=== PATIENT | female | born 1985 | race Caucasian/White ===

== ENCOUNTER 2025-03-19 14:01 | Emergency (ER) | payer OTHER, SELFPAY ==
[2025-03-19 14:31] LABS: Hematocrit 33.0 % (37.0-47.0); Hemoglobin 9.9 g/dL (12.0-16.0); Mean Corp Hgb Conc. 30.0 g/dL (33.0-37.0); Mean Corpuscular Volume 71.4 fL (81.0-99.0); Nucleated Red Blood Cells % 0 %; Platelet Count 377 10^3/uL (130-400); Red Cell Dist. Width 17.2 % (11.5-14.5)
[2025-03-19 14:40] LABS: HCG, Serum Qualitative Screen Negative
[2025-03-19 14:48] LABS: ALT (SGPT) 24 U/L (0-35); AST (SGOT) 23 U/L (14-36); Albumin 4.6 g/dl (3.5-5.0); Alkaline Phosphatase 68 U/L (38-126); Blood Urea Nitrogen 20 mg/dl (7-17); Calcium 9.4 mg/dl (8.4-10.2); Carbon Dioxide 25 mmol/L (22-30); Chloride 106 mmol/L (98-107); Glucose 93 mg/dl (70-99); Lipase 81 U/L (23-300); Potassium 4.6 mmol/L (3.5-5.1); Sodium 138 mmol/L (135-145); Total Protein 7.6 g/dl (6.3-8.2); eGFR > 60.00
[2025-03-19 15:56] LABS: Urine Character Clear (Clear)
--- NOTE | 2025-03-19 18:17 | ED.GENMED ---
History of Present Illness
General
Chief Complaint: Abdominal Symptoms
Source: patient
Exam Limitations: none
Time Seen by Provider: 03/19/25 18:00
History of Present Illness
History of Present Illness:
39yoF with a history of PCOS and hypothyroidism not on medications presenting for evaluation of flank pain. Symptoms began yesterday morning when she woke up. She reports a sharp pain in the R flank that resolved yesterday and recurred today.
Pain radiates to the suprapubic region. Her pain is associated with bloating, nausea, vomiting, and diarrhea. She also reports having the constant urge to urinate. She states it felt like she was dying today because the pain was so bad. Her pain
resolved while in the waiting room and she is currently asymptomatic. She had a similar episode in December. She denies any fevers. LMP was 1 week ago. No previous abdominal surgeries.
Phy Exam
General Physical Exam
General Presentation: well appearing and no apparent distress
General age: appears stated age
General Skin: warm and dry
General Habitus: normal
General Mental: alert
ENT Exam
ENT Exam: normocephalic
Cardiovascular Exam
Cardiovascular Exam: regular rate/rhythm and no murmur
Pulmonary Exam
Pulmonary Exam: lungs clear, no respiratory distress, no rales, no crackles, no rhonchi and no wheezing
Gastrointestinal Exam
Gastrointestinal Exam: non tender, soft, non distended and no cva tenderness
Neurological Exam
Neurological Exam: alert
[place] Coma Scale
Eye Opening: Spontaneous
Verbal Response: Oriented
Motor Response: Obeys Commands
GCS Total Score: 15
Skin Exam
Skin Exam: normal color and warm/dry
Psychiatric Exam
Psychiatric Exam: normal mood/affect
Course
Orders/Labs/Results
Orders:
Orders
03/19/25 14:12
Test Result ONCE
03/19/25 14:20
Complete Blood Count/With Diff Urgent
Comprehensive Metabolic Panel Urgent
HCG, Serum Qualitative Screen Urgent
Lipase Urgent
03/19/25 15:36
Urinalysis Reflex To Culture Urgent
Date Specimen was Collected: 03/19/25
Time Specimen was Collected: 14:12
Urine Microscopic Reflex Cult Urgent
Urine Culture Urgent
THANG Source: U
Specimen Description:
Date Specimen was Collected: 03/19/25
Time Specimen was Collected: 14:12
03/19/25 18:13
CT Abd/pel Without Iv Or Oral Urgent
Comment:
Reason For Exam: R flank pain
Abnormal Lab Results
03/19/25 03/19/25
14:20 15:36
Hgb 9.9 L g/dL
(12.0-16.0)
Hct 33.0 L %
(37.0-47.0)
MCV 71.4 L fL
(81.0-99.0)
MCH 21.4 L pg
(27.0-31.0)
MCHC 30.0 L g/dL
(33.0-37.0)
RDW 17.2 H %
(11.5-14.5)
BUN 20 H mg/dl
(7-17)
Ur Occult Blood Reflex 4+ A
(Negative)
Leukocyte Esterase Rfl 1+ A
(Negative)
Urine RBC 7-10 A /HPF
(0-2)
Urine Bacteria (Reflex) Moderate A
(Negative)
03/19/25 14:20
03/19/25 14:20
Vital Signs
Initial and Last Documented VS:
Initial Vital Signs
Temp Pulse Resp Pulse Ox
98.4 F 78 16 98
03/19/25 14:07 03/19/25 14:07 03/19/25 14:07 03/19/25 14:07
Last Documented Vital Signs
Temp Pulse Resp BP Pulse Ox
98.4 F 78 16 125/66 98
03/19/25 14:07 03/19/25 14:07 03/19/25 14:07 03/19/25 19:03 03/19/25 18:24
MDM/Problems Addressed
Differential Diagnosis Includes:
39yoF here with R flank pain x 1 day. Intermittent. Associated with n/v and urinary urgency. Resolved while in the waiting room. Asymptomatic on initial evaluation. VSS. She is well appearing in no distress. Abdominal exam is benign. Differential
diagnosis includes but is not limited to: kidney stone, pyelonephritis, biliary colic, gastroenteritis, doubt appendicitis
Initial ED plan: Workup initiated in triage. Labs reveal anemia with a hemoglobin of 9.9. Remainder of labs unremarkable including normal white count, renal function, LFTs, lipase. UA with 4+ blood. Moderate bacteria present on microscopic
analysis although 11-15/LPF squamous epithelial cells present suggesting contaminated sample. Will obtain CT abdomen without contrast.
*Pulse Oximetry
SaO2: 98
Oxygen Mode of Delivery: Room air
Patient hypoxic: no
*Critical Care Note
Total Time (30-74mins, 75-104mins- exclusive of procedures): Not Applicable
Update Note
Update Note:
CT shows a 4 mm stone near the right UVJ. It is difficult to tell whether this is in the UVJ or has passed into the bladder. Only minor hydro present. Patient remains asymptomatic on reassessment. She is stable for discharge. Supportive care
discussed including hydration and urine straining. She was advised to take Tylenol and ibuprofen for pain. Prescription given for Zofran. Advised follow-up with urology and ED return precautions reviewed.
ED Attending Note
-
Portions of this chart may have been created with voice recognition software.� Occasional wrong word or��sound alike� substitutions may have occurred due to the inherent limitations of voice recognition software.
Discharge Plan
Departure
Patient Disposition: Home (Routine Discharge)
Date of Disposition: 03/19/25
Time of Disposition: 20:39
Patient with high blood pressure during this ER visit?: No
Discharge Problem:
Calculus of distal right ureter
Instructions: Kidney stones in adults - ED (DC)
Prescriptions:
New
ondansetron 4 mg tablet,disintegrating
4 mg PO Q6H PRN (Reason: nausea and vomiting) Qty: 20 0RF
Referrals:
Christopher Sanchez MD [Active, Urology]
UNKNOWN - PT DOES,NOT KNOW [Family Provider]
Activity Restrictions/Additional Instructions:
Drink plenty of fluids. Strain your urine until stone has passed.
Take Tylenol and ibuprofen as needed for pain. Take Zofran as needed for nausea.
Please follow-up with urology. Return to the ER with any worsening symptoms including uncontrolled pain or fevers.
Interventions
Interventions:
*Risk Screen - Suicide Last Done: 03/19/25 14:07
*Neglect/Abuse Screening Last Done: 03/19/25 14:07
*Nursing Disposition Last Done: 03/19/25 21:01
DF-Fwljqo-Tniocutzpw Assessment Last Done: 03/19/25 19:41
Discharge Date and Time
Discharge Date/Time: 03/19/25 21:04
Print Language: PERSIAN
[2025-03-19 19:03] VITALS: BP 125/66
== END 2025-03-19 21:04 | disposition home or self-care (01) ==
LOC: EMR 14:01
PROVIDERS: Emergency Medicine; EMERGENCY PHYSICIAN Emergency Medicine
DX: N13.2 Hydronephrosis with renal and ureteral calculous obstruction (principal); E03.9 Hypothyroidism, unspecified; E28.2 Polycystic ovarian syndrome
CPT/HCPCS: 99284; 74176; 80053; 81003; 81015; 83690; 84703; 85025; 87086